=== PATIENT | male | born 1985 | race Caucasian/White ===

== ENCOUNTER 2018-05-07 07:51 | Emergency (ER) | payer MEDICAID, OTHER ==
[2018-05-07] MEDS: DEXAMETHASONE 10 MG/ML 1 ML INJ PO (08:25)
== END 2018-05-07 08:43 | disposition home or self-care (01) ==
LOC: FTE 07:51
DX: R21 Rash and other nonspecific skin eruption (principal)
CPT/HCPCS: 99283; J1100

== ENCOUNTER 2018-06-29 11:08 | Emergency (ER) | payer OTHER, MEDICAID | END 2018-06-29 11:59 | disposition home or self-care (01) | LOC: FTE 11:08 | DX: B86 Scabies (principal); F17.210 Nicotine dependence, cigarettes, uncomplicated | CPT/HCPCS: 99283; Z7502 ==

== ENCOUNTER 2018-07-13 05:58 | Emergency (ER) | payer OTHER ==
[2018-07-13] MEDS ORDERED: FAMOTIDINE 20 MG INJ IV (06:16)
[2018-07-13] MEDS ORDERED: ONDANSETRON 4 MG INJ IV (06:16)
[2018-07-13] MEDS: LIDOCAINE/MYLANTA 40 ML BTL PO (06:31)
[2018-07-13] MEDS: ONDANSETRON (ODT) 4 MG TAB ODT (06:32)
[2018-07-13] MEDS: FAMOTIDINE 20 MG TAB PO (06:32)
[2018-07-13 06:49] LABS: ADD MAN DIFF? NO
[2018-07-13 06:54] LABS: ADD UMIC NO; UR ASCORBIC ACID NEGATIVE (NEGATIVE); UR BILIRUBIN (Dip) NEGATIVE (NEGATIVE); UR BLOOD (Dip) NEGATIVE (NEGATIVE); UR CLARITY CLEAR (CLEAR); UR COLOR YELLOW (YELLOW); UR GLUCOSE (Dip) NEGATIVE (NEGATIVE); UR KETONES (Dip) NEGATIVE (NEGATIVE); UR LEUKOCYTE ESTERASE (Dip) NEGATIVE Leu/ul (NEGATIVE); UR NITRITE (Dip) NEGATIVE (NEGATIVE); UR SPECIFIC GRAVITY (Dip) 1.021 (1.003-1.030); UR TOTAL PROTEIN (Dip) NEGATIVE (NEGATIVE); UR UROBILINOGEN (Dip) NEGATIVE (NEGATIVE)
[2018-07-13 06:56] LABS: WHITE BLOOD COUNT 6.3 10^3/ul (4.8-10.8)
[2018-07-13 06:56] LABS: BASOPHILS % 0.5 % (0.0-2.0); EOSINOPHILS # 0.2 10^3/ul (0.0-0.5); EOSINOPHILS % 3.4 % (0.0-7.0); HEMOGLOBIN 16.4 g/dl (14.0-18.0); LYMPHOCYTES % 32.5 % (15.0-51.0); MEAN CORPUSCULAR HEMOGLOBIN 33.4 pg (29.0-33.0); MEAN CORPUSCULAR HGB CONC 33.5 g/dl (32.0-37.0); MEAN CORPUSCULAR VOLUME 99.8 fl (82.0-101.0); MEAN PLATELET VOLUME 9.4 fl (7.4-10.4); MONOCYTE # 0.5 10^3/ul (0.3-0.9); MONOCYTES % 7.4 % (0.0-11.0); NEUTROPHIL # 3.5 10^3/ul (1.6-7.5); NEUTROPHILS % 55.9 % (39.0-77.0); PLATELET COUNT 203 10^3/UL (140-415); RED BLOOD COUNT 4.91 10^6/ul (4.70-6.10); RED CELL DISTRIBUTION WIDTH 13.4 % (11.5-14.5)
[2018-07-13 07:15] LABS: ALANINE AMINOTRANSFERASE 80 IU/L (13-69); ALBUMIN 3.4 g/dl (3.3-4.9); ALBUMIN/GLOBULIN RATIO 1.09; ALKALINE PHOSPHATASE 37 IU/L (42-121); ANION GAP 8 (8-16); ASPARTATE AMINO TRANSFERASE 37 IU/L (15-46); BILIRUBIN,INDIRECT 0.5 mg/dl (0-1.1); BILIRUBIN,TOTAL 0.5 mg/dl (0.2-1.3); BLOOD UREA NITROGEN 11 mg/dl (7-20); CARBON DIOXIDE 29 mmol/L (21-31); CHLORIDE 108 mmol/L (97-110); GLUCOSE 91 mg/dl (70-220); LIPASE 34 U/L (23-300); SODIUM 141 mmol/L (135-144); TOTAL PROTEIN 6.5 g/dl (6.1-8.1)
[2018-07-13] MEDS: LORAZEPAM 0.5 MG TAB PO (07:23)
[2018-07-13] MEDS: BUSPIRONE 10 MG TAB PO (07:53)
[2018-07-13] MEDS: BUSPIRONE 5 MG TAB PO (07:54)
== END 2018-07-13 08:54 | disposition home or self-care (01) ==
LOC: FTE 05:58
DX: R10.30 Lower abdominal pain, unspecified (principal)
CPT/HCPCS: 74176; 80053; 81003; 83690; 85025; 99284-25

== ENCOUNTER 2018-11-11 10:16 | Emergency (ER) | payer OTHER | END 2018-11-11 11:58 | disposition home or self-care (01) | LOC: FTE 10:16 | DX: M25.561 Pain in right knee (principal) | CPT/HCPCS: 73562; 99283-25 ==